=== PATIENT | female | born 1995 | race African-American/Black ===

== ENCOUNTER 2020-10-18 05:52 | Inpatient (IN) | payer OTHER, SELFPAY ==
[2020-10-18] VITALS (118 sets, daily range): BP systolic 69–170; BP diastolic 32–121; PULSE 67–190; RESP 16; TEMP 36.6–37.1; O2SAT 96–100; BMI 39.0
--- NOTE | 2020-10-18 06:17 | PM.IMHP ---
H&P: HPI History of Present Illness Date/Time: 10/18/20 06:17 Chief Complaint: term pregnacy with elective induction of labor & delivery and post sterilization Narrative: Hilary Vazquez is a 25 year old AA female , presents for IOL and PPTL at 39weeks. c/b anemia, GBS, UTI, asthma, cic, varicella non immune , bv, ca,Sexually transmitted diseases-CT and TV abnormal 1hr gct with normal 3hr GTT with unfavorable cervix, will need one or two doses of cervidil followed by pitocin for labor induction and delivery followed by tubal sterilization. consents signed Review of Systems Review of Systems: All systems reviewed & are unremarkable except as noted in HPI and below Constitutional: Constitutional: Reports no additional constitutional complaints Eyes: Eyes: Reports no additional eye complaints ENT: Reports system reviewed and no additional complaints, except as documented Cardiovascular: Cardiovascular: Reports no additional cardiovascular complaints Respiratory: Respiratory: Reports no additional respiratory complaints Gastrointestinal: Gastrointestinal: Reports no additional gastrointestinal complaints Genitourinary: Genitourinary: Reports no additional female genitourinary complaints Musculoskeletal: Musculoskeletal: Reports no additional musculoskeletal complaints Integumentary/Breasts: Skin/Breast: Reports system reviewed and no additional complaints, except as docu Neurologic: Reports system reviewed and no additional complaints, except as documented Psychiatric: Psychiatric: Reports no additional psychiatric complaints Endocrine: Endocrine: Reports no additional endocrine complaints Hematologic/Lymphatic: Hematologic/Lymphatic: Reports no additional hematologic/lymphatic complaints Allergic/Immunologic: Allergic/Immunologic: Reports no additional allergic/immunologic complaints [facility] Past Medical History Medical History (Updated 10/18/20 @ 06:50 by Clay Baumann MD) Anemia Asthma BV (bacterial vaginosis) Amy infection of genital region Chlamydia Constipation Encounter for elective induction of labor Encounter for sterilization GBS (group B Streptococcus carrier), +RV culture, currently Maternal varicella, non-immune Obesity (BMI 30-39.9) Sexually transmissible disease Term Trichomonal cervicitis UTI (urinary tract infection) Family History Family History (Updated 10/18/20 @ 06:41 by Clay Baumann MD) Grandparent Carcinoma of colon Mother Asthma Heart disease Hypertension Father Hypertension Other No pertinent family history Social History Social History (Updated 10/18/20 @ 06:42 by Clay Baumann MD) Smoking status: Never smoker Second hand tobacco smoke exposure: No Alcohol intake: never Substance use: never Substance use type: does not use Living arrangements: with family Gender identity (if verbalized by the patient): Female Sexual Orientation (if Verbalized by the Patient): Straight or Heterosexual Spiritual care concerns: No Agree to blood products: Yes Meds Home Medications and Allergies Home Medications Medication Instructions Recorded Confirmed Type PNV cmb#95-ferrous fumarate-FA 1 tablet PO DAILY 10/11/20 10/11/20 History [] Allergies Allergy/AdvReac Type Severity Reaction Status Date / Time No Known Allergies Allergy Verified 10/11/20 12:49 Exam Const: General: cooperative, healthy appearing, comfortable, no acute distress, well developed, alert, awake and Physically active Nutritional Appearance: well nourished and obese Orientation/consciousness: patient oriented x3 HENMT: Head: normal to inspection Eyes: General: appearance normal, both eyes and all related structures Visual Benz: normal visual benz by confrontation Alignment and Position: alignment normal Periorbital: periorbital findings normal Eyelids: eyelids normal Conjunctivae
--- NOTE | 2020-10-18 06:31 | WPDHPUPDATE1 ---
History and Physical Update Update Date/Time: 10/18/20 06:31 History and Physical has been reviewed, including an updated exam of the patient. There are NO changes in the patient's condition. Risks, benefits, and alternatives have been discussed and questions answered. Patient agrees to proceed with procedure. Hilary Vazquez is a 25 year old AA female , presents for IOL and PPTL at 39weeks. c/b anemia, GBS, UTI, asthma, cic, varicella non immune , bv, ca,Sexually transmitted diseases-CT and TV abnormal 1hr gct with normal 3hr GTT with unfavorable cervix, will need one or two doses of cervidil followed by pitocin for labor induction and delivery followed by tubal sterilization. consents signed
--- NOTE | 2020-10-18 06:32 | WPDOBADMIT ---
Obstetrics - Admit Note Admission Note: record reviewed. No pertinent additions to the history and/or any subsequent changes in the physical findings that are not consistent with the expected course of the were found. Additions to the history and/or subsequent changes in the physical findings follow. None. Hilary Vazquez is a 25 year old AA female , presents for IOL and PPTL at 39weeks. c/b anemia, GBS, UTI, asthma, cic, varicella non immune , bv, ca,Sexually transmitted diseases-CT and TV abnormal 1hr gct with normal 3hr GTT with unfavorable cervix, will need one or two doses of cervidil followed by pitocin for labor induction and delivery followed by tubal sterilization. consents signed
[2020-10-18 06:48] LABS: Basophils Percent Auto 0.2 % (0.2-1.2); Eosinophils Percent Auto 0.8 % (0-4.4); Hematocrit 28.8 % (37.0-47.0); Hemoglobin 8.8 g/dL (12.0-15.0); Immature Granulocyte Absolute 0.01 K/mm3 (0.00-0.031); Immature Granulocyte Percent A 0.2 % (0-0.5); Lymphocytes Absolute Auto 1.95 K/mm3 (0.9-3.2); Lymphocytes Percent Auto 38.2 % (18.3-44.2); Mean Corpuscular HGB Conc 30.6 g/dl (32-36); Mean Corpuscular Volume 78.5 fl (80-100); Mean Platelet Volume 10.2 fl (7.4-10.4); Monocytes Absolute Auto 0.5 K/mm3 (0.1-0.6); Neutrophils Absolute Auto 2.6 K/mm3 (1.3-6.7); Neutrophils Percent Auto 51.6 % (45.5-73.1); Platelet Count Result 190 k/mm3 (150-375); Red Blood Count 3.67 M/mm3 (4.2-5.4); Red Cell Distribution Width 16.5 % (11.5-14.5); White Blood Count 5.1 K/mm3 (4.5-10.0)
[2020-10-18] MEDS: DINOPROSTONE 10 MG VAG INSERT VAGINAL (07:23)
--- NOTE | 2020-10-18 07:26 | WPDANESEPP ---
Anes - Eval Pre Procedure Procedure: labor epidural Date/Time: 10/18/20 07:26 Preop Diagnosis: labor pain Pre Op Diagnosis: Induction of Labor Patient Data Age: 25 Gender: F Height: Weight: Last Vital Signs Temp 36.6 C 10/18/20 06:30 Pulse 88 10/18/20 07:17 BP 122/74 10/18/20 07:17 Allergies Allergy/AdvReac Type Severity Reaction Status Date / Time No Known Allergies Allergy Verified 10/11/20 12:49 Home Medications Medication Instructions Recorded Confirmed Type PNV cmb#95-ferrous fumarate-FA 1 tablet PO DAILY 10/11/20 10/11/20 History [] Laboratory Tests 10/18/20 10/18/20 06:41 06:41 WBC 5.1 K/mm3 K/mm3 (4.5-10.0) RBC 3.67 M/mm3 L M/mm3 (4.2-5.4) Hgb 8.8 g/dL L g/dL (12.0-15.0) Hct 28.8 % L % (37.0-47.0) MCV 78.5 fl L fl (80-100) MCH 24.0 pg L pg (26-34) MCHC 30.6 g/dl L g/dl (32-36) RDW 16.5 % H % (11.5-14.5) Plt Count 190 k/mm3 k/mm3 (150-375) MPV 10.2 fl fl (7.4-10.4) Immature Gran % (Auto) 0.2 % % (0-0.5) Neut % (Auto) 51.6 % % (45.5-73.1) Lymph % (Auto) 38.2 % % (18.3-44.2) [place] % (Auto) 9.0 % H % (2.6-8.5) Eos % (Auto) 0.8 % % (0-4.4) Baso % (Auto) 0.2 % % (0.2-1.2) Lymph # (Auto) 1.95 K/mm3 K/mm3 (0.9-3.2) [place] # (Auto) 0.5 K/mm3 K/mm3 (0.1-0.6) Eos # (Auto) 0.0 K/mm3 K/mm3 (0-0.3) Baso # (Auto) 0.0 K/mm3 K/mm3 (0.0-0.1) Abs Immat Gran (auto) 0.01 K/mm3 K/mm3 (0.00-0.031) Absolute Neuts (auto) 2.6 K/mm3 K/mm3 (1.3-6.7) Absolute Nucleated RBC 0.0 K/mm3 K/mm3 (0.0-0.012) Nucleated RBC % 0.0 % % (0.0-0.2) RPR Pending Patient hx anesthesia problems: none Family hx anesthesia problems: none PMFSH Past Medical History Medical History (Updated 10/18/20 @ 06:50 by Clay Baumann MD) Anemia Asthma BV (bacterial vaginosis) Amy infection of genital region Chlamydia Constipation Encounter for elective induction of labor Encounter for sterilization GBS (group B Streptococcus carrier), +RV culture, currently Maternal varicella, non-immune Obesity (BMI 30-39.9) Sexually transmissible disease Term Trichomonal cervicitis UTI (urinary tract infection) Family History Family History (Updated 10/18/20 @ 06:41 by lCay Baumann MD) Grandparent Carcinoma of colon Mother Asthma Heart disease Hypertension Father Hypertension Other No pertinent family history Social History Social History (Updated 10/18/20 @ 06:42 by Clay Baumann MD) Smoking status: Never smoker Second hand tobacco smoke exposure: No Alcohol intake: never Substance use: never Substance use type: does not use Living arrangements: with family Gender identity (if verbalized by the patient): Female Sexual Orientation (if Verbalized by the Patient): Straight or Heterosexual Spiritual care concerns: No Agree to blood products: Yes Exam Day of Procedure 10/18/20 07:26
[2020-10-18 11:51] LABS: Barbiturate Screen Urine Negative (Negative); Benzodiazepines Screen Urine Negative (Negative)
[2020-10-18 11:53] LABS: Amphetamine Screen Urine Negative (Negative); Cannabinoid Screen Urine Negative (Negative); Methadone Screen Urine Negative (Negative); Opiate Screen Urine Negative (Negative); Phencyclidine Screen Urine Negative (Negative)
[2020-10-18] MEDS: LACTATED RINGERS 1,000 ML 125 ML IV CONT ×3 (12:07→15:49)
[2020-10-18 12:08] LABS: Cocaine Screen Urine Negative (Negative)
[2020-10-18] MEDS: OXYTOCIN 30 UNITS/NS 500 ML 30 UNITS/500 ML BAG IV CONT (12:08)
[2020-10-18 14:27] LABS: Rapid Plasma Reagin Non-Reactive (NonReactive)
[2020-10-18] MEDS: PHENYLEPHRINE 1,000 MCG/10 ML SYRINGE 100 MCG IV PUSH ×3 (15:33→15:46)
--- NOTE | 2020-10-18 18:56 | WPDHPUPDATE1 ---
History and Physical Update Update Date/Time: 10/18/20 18:56 History and Physical has been reviewed, including an updated exam of the patient. There are NO changes in the patient's condition. Risks, benefits, and alternatives have been discussed and questions answered. Patient agrees to proceed with procedure.
--- NOTE | 2020-10-18 18:56 | WPDOBADMIT ---
Obstetrics - Admit Note Admission Note: record reviewed. No pertinent additions to the history and/or any subsequent changes in the physical findings that are not consistent with the expected course of the were found. Additions to the history and/or subsequent changes in the physical findings follow. None.
--- NOTE | 2020-10-18 18:56 | PM.OBPRVD ---
OB - Delivery Note Procedure Route of delivery: Episiotomy description: None Laceration Description: None Specimen: No Quantitative Blood Loss (ml): 200 Anesthesia type: Epidural Disposition: floor Narrative: Patient prepped and draped in usual manner for this procedure. Maternal expulsive efforts readily delivered vertex at which time nuchal cord was noted and readily reduced. Rest of baby was delivered without difficulty cord was clamped and cut and placenta removed spontaneously. Uterus was intact with cervix vagina and vulva were inspected with no lacerations or tears. At this point the procedure was considered terminated. Immediate postoperative condition mother and baby were both excellent. Baby Weeks of gestation at delivery: 38 gender: Female score one minute: 9 score five minutes: 9
[2020-10-18] MEDS: OXYTOCIN 30 UNITS/NS 500 ML 30 UNITS/500 ML BAG 125 UNITS IV CONT (19:23)
[2020-10-18] MEDS: WITCH HAZEL 40 PADS 1 PAD TOPICAL (19:49)
[2020-10-18] MEDS: BENZOCAINE 20% AER SPR (*SP) 56 GM CAN 1 SPRAY TOPICAL (19:49)
[2020-10-18] MEDS: IBUPROFEN 600 MG TABLET PO (22:15)
[2020-10-18] MEDS: ACETAMINOPHEN 325 MG TABLET 650 MG PO (22:15)
--- NOTE | 2020-10-19 01:14 | PC.NURSE ---
This patient, Hilary Vazquze, was received from Labor and Delivery on 10/18/20 at 2120. Patient/family oriented to unit policies and routines
[2020-10-19 05:51] LABS: Hematocrit 25.3 % (37.0-47.0); Hemoglobin 7.7 g/dL (12.0-15.0)
--- NOTE | 2020-10-19 09:08 | P.DS_ITS ---
DS: Admitting Diagnosis Admitting Diagnosis Admitting Diagnosis: pregnency OB - DS: Summary OB Procedures : None OB Procedures Intrapartum: Spontaneous Vag Delivery OB Procedures: : None Time Spent with Patient Time attestation: Total time spent providing and/or coordinating discharge services: DS: Data Data Completed and Pending Labs on day of discharge: Labs from last 24 hours 10/19/20 10/18/20 10/18/20 04:11 11:04 06:41 Hgb 7.7 L Hct 25.3 L Urine Opiates Screen Negative Urine Methadone Screen Negative Ur Barbiturates Screen Negative Ur Phencyclidine Scrn Negative Ur Amphetamine Screen Negative U Benzodiazepines Scrn Negative Urine Cocaine Screen Negative U Cannabinoids Screen Negative RPR Non-reactive Discharge Plan Discharge Discharging Clinician: Aron Reveles Patient Disposition: Home, Self-Care Activity: as tolerated Diet: as tolerated Patient Instructions: Antibiotic Form Stand Alone Forms: General Discharge Information Follow-up/Referrals: Clay Baumann MD [Physician] - 3 Weeks Discharge Medications: New ibuprofen 600 mg Tablet 600 mg PO Q6H PRN (Reason: Cramping) Qty: 30 RF: 0 Continued PNV cmb#95-ferrous fumarate-FA [] 28 mg iron- 800 mcg Tablet 1 tablet PO DAILY RF: 0 Date of admission: 10/18/20 05:52 Primary Care Provider: PHYSICIAN,DIVING BOARD ASSEMBLER Admitting Provider: Clay Baumann Attending physician on admission: Aron Reveles Condition: Stable
--- NOTE | 2020-10-19 09:30 | PC.NURSE ---
PT introductions made and plan of care discussed per post , pain management, bottle feeding, daily care activities. PT verbalized understanding of such care.
[2020-10-19] MEDS: ACETAMINOPHEN 325 MG TABLET 650 MG PO ×2 (09:42→13:38)
[2020-10-19] MEDS: IBUPROFEN 600 MG TABLET PO ×2 (09:43→16:26)
[2020-10-19] MEDS: DOCUSATE SODIUM 100 MG CAPSULE PO ×2 (09:44→16:26)
[2020-10-19] MEDS: POLYSACCHARIDE IRON COMPLEX 150 MG CAPSULE PO ×2 (09:44→16:26)
[2020-10-19 09:45] VITALS: BP 119/66; PULSE 72; RESP 20; TEMP 36.3; O2SAT 100
--- NOTE | 2020-10-19 09:55 | WPDANLDPN2 ---
Anes-Prog Note L&D Date/Time: 10/19/20 09:55 Comfortable throughout: labor and delivery Neuraxial method: epidural Epidural/Spinal procedure site: clean & non-tender Neuro status: Neuro function grossly intact. Cardiovascular status: normal Respiratory status: normal Airway patency: baseline Mental status: baseline Post-Op hydration status: normal Vital Signs: Last Vital Signs Temp 36.7 C 10/18/20 20:00 Pulse 88 10/18/20 21:01 Resp 16 10/18/20 20:00 BP 131/85 10/18/20 21:01 Pulse Ox 99 10/18/20 20:00 Pain score (VAS): 10/06 I/O: Intake & Output 10/18/20 10/19/20 10/19/20 23:59 07:59 15:59 Output Total 250 Balance -250 Post-procedural complaints: none Patient feedback: Patient satisfied with anesthetic care.
[2020-10-19 18:41] VITALS: BP 121/82; PULSE 79; RESP 16; TEMP 36.5; O2SAT 100
[2020-10-20] MEDS: IBUPROFEN 600 MG TABLET PO ×2 (03:00→10:45)
[2020-10-20] MEDS: ACETAMINOPHEN 325 MG TABLET 650 MG PO ×2 (03:00→10:45)
--- NOTE | 2020-10-20 08:00 | PC.NURSE ---
PT introductions made and plan of care discussed per post , pain management, bottle feeding, daily care activities and pending discharge to home. PT verbalized understanding. Her ride will be here at 1600
[2020-10-20 10:30] VITALS: BP 101/67; PULSE 87; RESP 18; TEMP 36.6; O2SAT 100
[2020-10-20] MEDS: POLYSACCHARIDE IRON COMPLEX 150 MG CAPSULE PO (10:44)
[2020-10-20] MEDS: DOCUSATE SODIUM 100 MG CAPSULE PO (10:44)
--- NOTE | 2020-10-20 16:30 | PC.NURSE ---
Pt received discharge instructions per protocol and verbalized understanding of such care.
--- NOTE | 2020-10-20 16:45 | PC.NURSE ---
Pt discharged to home ambulatory accompanied by infant to waiting car. Follow up appts confirmed
--- NOTE | 2020-10-23 17:25 | PM.OBDSVD ---
DS: Admitting Diagnosis Admitting Diagnosis Admitting Diagnosis: OB - DS: Summary OB Procedures : None OB Procedures Intrapartum: Spontaneous Vag Delivery OB Procedures: : None Time Spent with Patient Time attestation: Total time spent providing and/or coordinating discharge services: Discharge Plan Discharge Discharging Clinician: Aron Reveles Patient Disposition: Home, Self-Care Activity: as tolerated Diet: as tolerated Discharge Instructions: Education: Mom and Baby Guide Given to: Mother Follow-Up: Call your delivering provider's office for an appointment to be seen in: 4 Weeks Mom and baby should come to the [facility] for the follow-up appointment. Appointment Date/Time: October 22, 2020 at 11:00 am What to expect at your follow-up visit: Blood Pressure Check Call [phone] if you are unable to keep your appointment time. BREAST CARE: * Wear a snug supportive bra. * For engorgement discomfort: Bottle Feeding: * May apply ice packs PERINEAL CARE: * Until bleeding stops, use your douglas bottle after urinating * Change your pad frequently throughout the day * You may take sitz baths several times a day (fill your bathtub with warm water and soak for 20 minutes.) Do NOT bathe in the water * No tub baths until seen by your physician - You may shower ACTIVITY: * Rest as much as possible. * Do not exercise or lift anything heavier than your baby (such as laundry or other children.) * Avoid stairs or driving as much as possible. * Do not put anything into the vagina. No douching, tampons, or sexual activity until seen by physician. NOTIFY PHYSICIAN IF YOU HAVE ANY QUESTIONS OR IF ANY OF THE FOLLOWING SYMPTOMS OCCUR: * If your perineum becomes red, swollen, or more painful than what you have experienced in the hospital. * If your vaginal bleeding becomes foul smelling. * If your vaginal bleeding becomes more heavy than a period or if your bleeding changes from pink to bright red. However, you may pass an occasional walnut-sized clot once or twice for the first week . * If you experience a sharp, shooting pain in you calves. * If you discover a hard, reddened area on your breast or if you experience flu-like symptoms. * If you have a fever of 100.4 or greater DIET: * Eat regular, well-balanced meals. * Drink plenty of fluids daily. If , drink to thirst. Patient Instructions: Antibiotic Form Stand Alone Forms: General Discharge Information Follow-up/Referrals: Clay Baumann MD [Physician] - 3 Weeks Discharge Medications: New ibuprofen 600 mg Tablet 600 mg PO Q6H PRN (Reason: Cramping) Qty: 30 RF: 0 Continued PNV cmb#95-ferrous fumarate-FA [] 28 mg iron- 800 mcg Tablet 1 tablet PO DAILY RF: 0 Date of admission: 10/18/20 05:52 Primary Care Provider: PHYSICIAN,STONE DECORATOR Admitting Provider: Clay Baumann Attending physician on admission: Aron Reveles Condition: Stable
== END 2020-10-20 16:45 | disposition home or self-care (01) | DRG 560 ==
LOC: ANHLDR 17:24 → ANHOB2 21:29
PROVIDERS: Admitting Provider Obstetrics & Gynecology; Visit Provider Obstetrics & Gynecology
DX: O12.04 Gestational edema, complicating childbirth (principal); O75.3 Other infection during labor; O99.02 Anemia complicating childbirth; O99.824 Streptococcus B carrier state complicating childbirth; O99.214 Obesity complicating childbirth; E66.9 Obesity, unspecified; O76 Abnormality in fetal heart rate and rhythm complicating labor and delivery; O69.81X0 Labor and delivery complicated by cord around neck, without compression, not applicable or unspecified; Z3A.39 39 weeks gestation of pregnancy; Z37.0 Single live birth; J45.909 Unspecified asthma, uncomplicated; D64.9 Anemia, unspecified
CPT/HCPCS: 36415; 80307; 85014; 85018; 85025; 86592; 86850; 86900; 86901; A9270; J2370; J2590; J2795; J7120